=== PATIENT | male | born 2005 | race Caucasian/White ===

== ENCOUNTER 2024-09-03 06:51 | Inpatient (IN) | payer OTHER, SELFPAY ==
[2024-09-03 07:20] LABS: #Basophils 0.03 10x3/uL (0.0-0.2); %Basophils 0.6 % (0.0-1.0); %Eosinophils 2.7 % (0.0-10.0); %Lymphocytes 35.3 % (28.0-48.0); %Neutrophils 52.2 % (31.0-61.0); Hematocrit 42.8 % (42.0-52.0); Hemoglobin 14.6 g/dL (14.0-18.0); Mean Corpuscular HGB CONC 34.1 g/dL (32.0-36.0); Mean Corpuscular Hemoglobin 28.3 pg (25.0-35.0); Mean Corpuscular Volume 83.1 fL (78.0-98.0); Mean Platelet Volume 9.7 fL (7.4-10.4); Platelet Count 204 10x3/uL (130-400); RBC Distribution Width 12.6 % (11.5-14.5); Red Blood Cell (RBC) Count 5.15 mill/uL (4.00-5.20)
[2024-09-03 07:40] LABS: ALT (SGPT) 82 U/L (Less than 45); AST (SGOT) 310 U/L (11-34); Albumin 4.2 g/dL (3.1-4.5); Alkaline Phosphatase 74 U/L (50-130); Anion Gap 12 mmol/L (10-20); BUN (Urea Nitrogen) 13 mg/dL (8.4-21.0); Bilirubin, Total 0.8 mg/dL (0.3-1.2); Calc. Creatinine Clearance 0 mL/min (70-130); Calcium 9.1 mg/dL (7.8-10.44); Carbon Dioxide 27 mmol/L (22-29); Chloride 106 mmol/L (98-107); Estimated GFR 100; Globulin 2.7 g/dL (2.4-3.5); Glucose 97 mg/dL (70-105); Potassium 4.1 mmol/L (3.5-5.1); Protein, Total 6.9 g/dL (6.0-8.3); Sodium 141 mmol/L (136-145)
[2024-09-03 07:46] LABS: Bacteria/HPF None Seen HPF (None Seen); Bilirubin Negative (Negative); Blood, Urine Negative (Negative); CAUTI Indications for Culture Pelvic or flank pain; Clarity Clear (Clear); Glucose, Urine (Dipstick) Normal (Negative); Ketone, Urine Negative (Negative); Leukocyte Negative Leu/uL (Negative); Nitrite Negative (Negative); Protein, Urine (Dipstick) Negative (Neg-Trace); RBC/HPF 0-3 HPF (0-3); Specific Gravity, Urine 1.026 (1.002-1.036); Squamous Epithelial 0-3 HPF (0-3); Urobilinogen Normal mg/dL (Less than 2); WBC/HPF 0-3 HPF (0-3)
[2024-09-03 07:50] LABS: CK (CPK) 16034 U/L (30-200)
[2024-09-03 08:29] LABS: Urine Culture Reflex No No
[2024-09-03] MEDS ORDERED: Ondansetron PF 4 MG/2 ML Vial IVP PRN ×2 (09:47→18:35)
[2024-09-03 17:38] VITALS: BMI 29.0
[2024-09-03] MEDS: Lactated Ringer's 1,000 ML IV SCH (17:42)
[2024-09-03] MEDS ORDERED: Ondansetron ODT 4 MG TAB PO PRN (18:35)
[2024-09-03] MEDS ORDERED: Acetaminophen 325 MG TAB PO PRN (18:35)
[2024-09-04] MEDS: Acetaminophen 325 MG TAB PO PRN (00:44)
[2024-09-04] MEDS: Sodium Chloride 0.9% 1,000 ML IV SCH ×4 (11:01→17:35)
[2024-09-05 07:04] LABS: Anion Gap 10 mmol/L (10-20); BUN (Urea Nitrogen) 11 mg/dL (8.4-21.0); Calc. Creatinine Clearance 166 mL/min (70-130); Calcium 8.9 mg/dL (7.8-10.44); Carbon Dioxide 27 mmol/L (22-29); Chloride 108 mmol/L (98-107); Estimated GFR 121; Glucose 94 mg/dL (70-105); Potassium 4.1 mmol/L (3.5-5.1); Sodium 141 mmol/L (136-145)
[2024-09-05 07:17] LABS: CK (CPK) 13546 U/L (30-200)
[2024-09-05 08:42] VITALS: BP 114/71; TEMP 97.4
== END 2024-09-05 13:41 | disposition home or self-care (01) | DRG 558 ==
LOC: ERS 06:51 → ERHOLD 09:00 → T4-B 17:33 → OBSVTOIN 09-04 09:56
PROVIDERS: ADMIT Internal Medicine; ATTEND Family Medicine
DX: M62.82 Rhabdomyolysis (principal); Z98.890 Other specified postprocedural states; Z88.0 Allergy status to penicillin
CPT/HCPCS: 36415; 36416; 80048; 80053; 81001; 82550; 85025; 93005; 96360; 96361; J7030; J7120